=== PATIENT | female | born 1940 | race Caucasian/White ===

== ENCOUNTER 2023-04-01 13:09 | Inpatient (IN) | payer OTHER, BC ==
[~2023-04-01] VITALS: Ht 157.5 cm; Wt 54.9 kg
--- NOTE | 2023-04-01 13:12 | NUR ---
BIBA BLS TO ER BED 6
[2023-04-01 13:19] VITALS: BP 143/61
--- NOTE | 2023-04-01 13:38 | NUR ---
alert with confusion, , placed on monitor, pulse ox, and quantitative analyst, vss, iv 20g established to left ac with blood return, labs drawn, tolerated well, no infilitration, no redness noted at this time, hob 30 degress, positioned for comfort, awaiting for ermd
[2023-04-01 13:52] LABS: BASOPHILS % (AUTO) 0.3 % (0.0-2.0); EOSINOPHILS % (AUTO) 0.3 % (0.0-4.0); HEMATOCRIT 32.7 % (36-48); HEMOGLOBIN 10.4 g/dL (12.0-16.0); LYMPHOCYTES # (AUTO) 0.7 K/uL (2.5-16.5); LYMPHOCYTES % (AUTO) 7.2 % (20.5-51.1); MEAN CORPUSCULAR HEMOGLOBIN 24 pg (27-31); MEAN CORPUSCULAR HGB CONC 32 g/dL (33-37); MEAN CORPUSCULAR VOLUME 76.2 fL (80-94); MONOCYTES # (AUTO) 0.8 K/uL (0.8-1.0); MONOCYTES % (AUTO) 8.7 % (1.7-9.3); NEUTROPHILS # (AUTO) 8.1 K/uL (1.8-7.7); NEUTROPHILS % (AUTO) 83.5 % (42.2-75.2); PLATELET COUNT (AUTO) 235 K/uL (140-450); RED BLOOD CELL COUNT(AUTO) 4.29 MIL/uL (4.20-5.40); RED CELL DISTRIBUTION WIDTH 20.8 % (11.6-13.7); WHITE BLOOD COUNT (AUTO) 9.7 K/uL (4.8-10.8)
[2023-04-01] MEDS ORDERED: MORPHINE SULFATE 4 MG/ML SYR IVP ONE (14:20)
[2023-04-01] MEDS ORDERED: ONDANSETRON 4 MG/2 ML VIAL IVP ONE (14:20)
[2023-04-01] MEDS ORDERED: NACL 0.9% 1,000 ML IV ONE ×2 (14:20→16:00)
[2023-04-01 14:27] LABS: ALBUMIN 2.6 g/dL (3.4-5.0); ANION GAP 11.9 (8-16); ASPARTATE AMINOTRANSFERASE 25 U/L (15-37); CARBON DIOXIDE 30.7 mmol/L (21-32); CHLORIDE 97 mmol/L (98-107); CREATININE 2.5 mg/dL (0.6-1.3); GLUCOSE 154 mg/dL (74-106); LIPASE 81 U/L (73-393); POTASSIUM 3.6 mmol/L (3.5-5.1); SODIUM SERUM 136 mmol/L (136-145); TOTAL BILIRUBIN 0.6 mg/dL (0.0-1.0); UREA NITROGEN, BLOOD 42 mg/dL (7-18)
[2023-04-01 15:50] LABS: APPEARANCE,URINE CLEAR (CLEAR); BILIRUBIN,URINE 2+ (NEGATIVE); BLOOD, URINE 3+ (NEGATIVE); COLOR,URINE YELLOW (YELLOW); LEUKOCYTE ESTERASE ,URINE 2+ (NEGATIVE); NITRITE, URINE POSITIVE (NEGATIVE); PH,URINE 6.5 (5.0-9.0); UGLUCOSE NEGATIVE (NEGATIVE)
--- NOTE | 2023-04-01 15:50 | NUR ---
JACKIE HUYNH OF PATIENT (PHONE NUMBER [phone]) CALLED FOR UPDATE ON PATIENTS STATUS. INFORMED PATIENT IS PENDING ADMIT. JACKIE HAS POWER OF BRUISE TRIMMER FOR PATIENT. SHE REQUESED THAT BONNIE SONG PHONE NUMBER [phone] BE ADDED TO CONTACT LIST FOR UPDATES REGARDING CARE FOR PATIENT.
[2023-04-01] MEDS ORDERED: POTASSIUM CHLORIDE 10 MEQ TABER PO PRN (15:55)
[2023-04-01] MEDS ORDERED: ACETAMINOPHEN 325 MG TAB PO PRN (15:55)
[2023-04-01] MEDS ORDERED: LORazepam 2 MG/ML VIAL IVP PRN (15:55)
[2023-04-01] MEDS ORDERED: MORPHINE SULFATE 2 MG/ML SYR IVP PRN (15:55)
[2023-04-01] MEDS ORDERED: DOCUSATE SODIUM 100 MG GELCAP PO PRN (15:55)
[2023-04-01] MEDS ORDERED: ONDANSETRON 4 MG/2 ML VIAL IVP PRN (15:55)
[2023-04-01] MEDS ORDERED: ZOLPIDEM 10 MG TAB PO PRN (15:55)
[2023-04-01 16:02] LABS: RBC,URINE TOO NUMEROUS TO COUN /HPF (0-5)
[2023-04-01 16:03] LABS: TRICHOMONAS,URINE None Seen /HPF (None Seen); YEAST,URINE None Seen /HPF (None Seen)
--- NOTE | 2023-04-01 16:45 | NUR ---
Janet haynes in EDM - 04/01/23 at 1651 by [email or web address] LONG [facility] CALLED FOR PATIENT UPDATE. WILL CALL BACK TO SPEAK TO MD EDUARDO.
--- NOTE | 2023-04-01 17:00 | NUR ---
Patient will be admitted to care of DR PYLE. Admited to TELEMETRY. Will go to room 107B. Belongings list completed. Report to ROBERT CHERRY.
--- NOTE | 2023-04-01 17:15 | NUR ---
RECEIVED PATIENT ED ON BED. PATIENT AWAKE. ONLY RESPONDS IN NODS. VITAL SIGNS CHECKED. PATIENT ABLE TO TOLERATE ROOM AIR. ADMISSION CHARTING AND PLAN OF CARE DONE.
[2023-04-01] MEDS: NACL 0.45% 1,000 ML IV SCH ×2 (17:25→23:24)
[2023-04-01 18:10] LABS: BASOPHILS # (AUTO) 0.1 K/uL (0.00-0.22); BASOPHILS % (AUTO) 0.8 % (0.0-2.0); EOSINOPHILS % (AUTO) 0.4 % (0.0-4.0); HEMOGLOBIN 9.6 g/dL (12.0-16.0); LYMPHOCYTES % (AUTO) 10.1 % (20.5-51.1); MEAN CORPUSCULAR HEMOGLOBIN 24 pg (27-31); MEAN CORPUSCULAR HGB CONC 32 g/dL (33-37); MEAN CORPUSCULAR VOLUME 75.9 fL (80-94); MONOCYTES # (AUTO) 0.9 K/uL (0.8-1.0); MONOCYTES % (AUTO) 9.3 % (1.7-9.3); NEUTROPHILS # (AUTO) 7.8 K/uL (1.8-7.7); NEUTROPHILS % (AUTO) 79.4 % (42.2-75.2); PLATELET COUNT (AUTO) 246 K/uL (140-450); RED BLOOD CELL COUNT(AUTO) 3.96 MIL/uL (4.20-5.40); WHITE BLOOD COUNT (AUTO) 9.8 K/uL (4.8-10.8)
--- NOTE | 2023-04-01 19:20 | NUR ---
ENDORSED PATIENT TO PM NURSE FOR CONTINUATION OF CARE.
[2023-04-01 20:00] VITALS: BP 143/56
--- NOTE | 2023-04-01 20:00 | NUR ---
HAND-OFF REPORT FROM FRANK CAREY FOR CONTINUITY OF CARE. PT RESTING QUIETLY. NO ACUTE DISTRESS. CONT TO MONITOR AND ASSIST.
--- NOTE | 2023-04-01 22:51 | NUR ---
2229 REFUSED ULTRASOUND OF KIDNEYS. RN NOTIFIED BY RADIOLOGY. RN ACCOMPANIED RADIOLOGY TO EXPLAIN IMPORTANCE. PT ADAMANTLY REFUSED,"I DON'T WANT IT". US OF KIDNEYS NOT DONE. RADIOLOGY STATED WILL ATTEMPT AGAIN IN A.M. CHARGE NURSE AWARE.
--- NOTE | 2023-04-01 23:00 | NUR ---
MRSA SWAB OBTAINED. CONTINUES TO REFUSE HOFFMAN CATHETER. PERSONNEL X2 ATTEMPTED WHEN PRIMARY NURSE WAS TOLD BY PT "I JUST DON'T LIKE YOU". OTHER STAFF UNSUCCESSFUL WELL.
[2023-04-01] MEDS ORDERED: cefTRIAXone 1,000 MG VIAL ONE (23:31)
--- NOTE | 2023-04-01 23:40 | NUR ---
ROCEPHIN1 GRAM FIRST DOSE ADMINISTERED AT THIS TIME VERIFIED OK WITH CHARGE NURSE DONELL. PT JUST NOW ALLOWING IV FLUIDS TO BE HUNG. TOTALLY NON-COMPLIANT WITH NURSING CARE AND MD ORDERS.
[2023-04-02] VITALS: BP 108/54
--- NOTE | 2023-04-02 03:16 | NUR ---
0155 MD PYLE NOTIFIED PT REFUSED ULTRASOUND OF KIDNEYS/HOFFMAN PLACEMENT AND DELAYED IV THERAPY TILL 04/01/23 4465. INFORMED TO DOCUMENT AND SHE WILL TALK WITH PATIENT IN A.M. CHARGE NURSE NOTIFIED OF MD RESPONSE.
[2023-04-02 04:00] VITALS: BP 145/53
[2023-04-02 06:34] LABS: ALBUMIN 2.1 g/dL (3.4-5.0); ANION GAP 10.2 (8-16); ASPARTATE AMINOTRANSFERASE 21 U/L (15-37); CARBON DIOXIDE 29.5 mmol/L (21-32); CHLORIDE 100 mmol/L (98-107); CREATININE 2.2 mg/dL (0.6-1.3); GLUCOSE 94 mg/dL (74-106); MAGNESIUM 1.8 mg/dL (1.8-2.4); PHOSPHORUS 4.5 mg/dL (2.5-4.9); POTASSIUM 3.7 mmol/L (3.5-5.1); SODIUM SERUM 136 mmol/L (136-145); TOTAL BILIRUBIN 0.4 mg/dL (0.0-1.0); UREA NITROGEN, BLOOD 39 mg/dL (7-18)
[2023-04-02 06:50] LABS: BASOPHILS % (AUTO) 0.4 % (0.0-2.0); EOSINOPHILS # (AUTO) 0.1 K/uL (0-0.4); EOSINOPHILS % (AUTO) 1.4 % (0.0-4.0); HEMATOCRIT 27.6 % (36-48); HEMOGLOBIN 8.8 g/dL (12.0-16.0); LYMPHOCYTES % (AUTO) 11.7 % (20.5-51.1); MEAN CORPUSCULAR HEMOGLOBIN 24 pg (27-31); MEAN CORPUSCULAR HGB CONC 32 g/dL (33-37); MEAN CORPUSCULAR VOLUME 76.3 fL (80-94); MONOCYTES % (AUTO) 11.5 % (1.7-9.3); NEUTROPHILS # (AUTO) 6.3 K/uL (1.8-7.7); PLATELET COUNT (AUTO) 216 K/uL (140-450); RED BLOOD CELL COUNT(AUTO) 3.62 MIL/uL (4.20-5.40); WHITE BLOOD COUNT (AUTO) 8.5 K/uL (4.8-10.8)
--- NOTE | 2023-04-02 07:17 | NUR ---
PATIENT HAS BEEN SCREENED AND CATEGORIZED MODERATE NUTRITION RISK. PATIENT WILL BE SEEN WITHIN 3-5 DAYS OF ADMISSION. 04/01/23-04/06/[address]
--- NOTE | 2023-04-02 07:30 | NUR ---
RECEIVED REPORT FROM SKIDDER LEVER OPERATOR NURSE FOR CONTINUITY OF CARE. PT IS AWAKE AND VS IS BEING TAKEN, NO SIGNS OF DISTRESS. WILL CONTINUE TO MONITOR.
[2023-04-02 08:00] VITALS: BP 131/53
[2023-04-02] MEDS: PANTOPRAZOLE 40 MG INJ VIAL IVP SCH (09:18)
[2023-04-02 09:40] LABS: URINE TOTAL PROTEIN 202.5 mg/dL (0-12)
[2023-04-02 12:00] VITALS: BP 137/56
[2023-04-02] MEDS: NACL 0.45% 1,000 ML IV SCH (13:25)
[2023-04-02 16:00] VITALS: BP 127/54
--- NOTE | 2023-04-02 17:45 | NUR ---
HOFFMAN CATHETER 16 FR WAS INSERTED WITH AN OUTPUT OF 400ML WITH DARK URINE.
--- NOTE | 2023-04-02 19:30 | NUR ---
HAND-OF REPORT RECEIVED FROM A.M NURSE FOR CONTINUITY OF CARE WIT BEDSIDE ROUNDS. REPORTED PT RECEPTIVE TO ALL CARE TODAY. MD AWARE. RENAL ULTRASOUND ACCEPTED.RESULTS HYDRO NEPHROSIS LEFT KIDNEY. CT OF ABD SITHOUT CONTRAST REVEALED CARDIOMEGALY. IV THERAPY CONTINUES WITH FLUIDS AND ABX FOR HYDRATION. I/S NS REDUCED FROM 100 TO 70 ML/H. CONT. TO MONITOR AND ASSIST.
--- NOTE | 2023-04-02 19:30 | NUR ---
ENDORSED PT TO NIGHT NURSE FOR CONTINUITY OF CARE. PT IS AWAKE AND STABLE. NO SIGN OF DISTRESS.MNURUM
[2023-04-02 20:00] VITALS: BP 129/67
[2023-04-03] VITALS: BP 111/42
--- NOTE | 2023-04-03 01:30 | NUR ---
PT REQUESTED SLEEPING PILL. GIVEN.
[2023-04-03] MEDS: NACL 0.45% 1,000 ML IV SCH ×2 (02:10→16:28)
[2023-04-03 04:00] VITALS: BP 123/45
[2023-04-03 06:31] LABS: BASOPHILS # (AUTO) 0.1 K/uL (0.00-0.22); BASOPHILS % (AUTO) 1.3 % (0.0-2.0); EOSINOPHILS # (AUTO) 0.1 K/uL (0-0.4); HEMOGLOBIN 8.9 g/dL (12.0-16.0); LYMPHOCYTES # (AUTO) 1.2 K/uL (2.5-16.5); LYMPHOCYTES % (AUTO) 20.5 % (20.5-51.1); MEAN CORPUSCULAR HEMOGLOBIN 24 pg (27-31); MEAN CORPUSCULAR HGB CONC 32 g/dL (33-37); MEAN CORPUSCULAR VOLUME 76.8 fL (80-94); MONOCYTES # (AUTO) 0.5 K/uL (0.8-1.0); MONOCYTES % (AUTO) 8.5 % (1.7-9.3); NEUTROPHILS # (AUTO) 3.9 K/uL (1.8-7.7); NEUTROPHILS % (AUTO) 67.7 % (42.2-75.2); PLATELET COUNT (AUTO) 232 K/uL (140-450); RED BLOOD CELL COUNT(AUTO) 3.64 MIL/uL (4.20-5.40); RED CELL DISTRIBUTION WIDTH 21.2 % (11.6-13.7); WHITE BLOOD COUNT (AUTO) 5.7 K/uL (4.8-10.8)
[2023-04-03 07:02] LABS: ANION GAP 7.5 (8-16); CARBON DIOXIDE 31.2 mmol/L (21-32); CHLORIDE 103 mmol/L (98-107); CREATININE 1.5 mg/dL (0.6-1.3); GLUCOSE 82 mg/dL (74-106); POTASSIUM 3.7 mmol/L (3.5-5.1); SODIUM SERUM 138 mmol/L (136-145); UREA NITROGEN, BLOOD 27 mg/dL (7-18)
--- NOTE | 2023-04-03 07:23 | NUR ---
RECEIVED REPORT FROM TORCH CUTTER NURSE FOR CONTINUITY OF CARE. PT IS SLEEPING IN NC 3L, AWAKEN BY NAME, NO SIGN OF DISTRESS. WILL CONTINUE TO MONITOR. MNURUM
--- NOTE | 2023-04-03 07:30 | NUR ---
HAND-OFF REPORT TO RETURNING NURSES FOR CONTINUITY OF CARE. UNEVENTFUL NOC. SLEEPING PILL EFFECTIVE. URINE CONTINUES TO DRAIN PINK TRANSLUCENT COLORED URINE. DENIES PAIN. SLEPT WELL. NO TOOL SPECIMEN OBTAINED YET FOR OB/CDIFF. RELINQUISHED CARE OF PT AT THIS TIME.
[2023-04-03 08:00] VITALS: BP 123/46
[2023-04-03] MEDS: PANTOPRAZOLE 40 MG INJ VIAL IVP SCH (09:14)
[2023-04-03] MEDS: MAG SULF 2000 MG/WATER PREMIX 50 ML IV PRN (09:17)
--- NOTE | 2023-04-03 11:36 | NUR ---
DC PLANN[age] YRS OLD FEMALE PATIENT WAS ADMITTED FROM [facility] WITH A DX OF NAVID. PATIENT HAS A HX OF DEMENTIA HTN, AND A-FIB ON ELIQUIS. CXR SHOWED MILD CARDIOMEGALY AND PULMONARY EDEMA WITH A SMALL PLEURAL EFFUSION. RAPID COVID TEST NEGATIVE. ADMINISTERED IVF, IV ABX ROCEPHIN AND CONTINUED HOME MEDS. CONSULTED WITH GI , UROLOGIST AND NEPHRO. DR ALBA WILL PERFORM EGD AND COLONOSCOPY. DC PLAN TO RETURN TO [facility] WHEN STABLE. CM TO FOLLOW Addendum: 04/04/23 at 1109 by Abbey Aj RN DC PLANNING: SEEN BY GI, CONTINUE CONSERVATIVE TREATMENT MONITOR GI BLEED CONSIDER EGD/COLONOSCOPY NEEDED BY THE CLINICAL COURSE. UROLOGIST - KEEP F/C AND REPEAT RENAL US TO ASSESS RESOLUTION OF HYDRONEPHROSIS RECOMMENDED OUTPT UROLOGY F/U AND NEPHRO DR ODOM CLEARED FROM RENAL STAND POINT. DC PLAN TO GO HOME AND F/U WITH UROLOGIST RECOMMENDED. CM TO FOLLOW Addendum: 04/05/23 at 1433 by ABA ROSS CM RECEIVED ORDER FOR PATIENT TO GO BACK TO SNF FOR CONTINUE OF CARE. FAXED ALL PAPERWORK TO [facility] LOCATED AT [address] [facility] CALL FOR REPORT NUMBER . PATIENT WILL BE GOING TO ROOM [address] MICHEL. TRANSPORTATION ARRANGED WITH [employer] [facility] FOR A [id number] ROUTE CDL DRIVER TIME. NURSE RAMOS AND DAILY MEJIA AWARE OF THE ABOVE INFORMATION.
[2023-04-03 12:00] VITALS: BP 120/47
--- NOTE | 2023-04-03 12:39 | NUR ---
DC PLANNING ASSESSMENT COMPLETE PLEASE REFER TO ASSESSMENT FOR ADDITIONAL DETAILS MAN[facility] SUÁREZ REPORTS DC PLAN IS FOR PT TO RETURN TO [facility] WHEN MEDICALLY CLEARED BY PHYSICIAN. Addendum: 04/03/23 at 1240 by Ab Ferrera SS Amended: Links added.
[2023-04-03] MEDS ORDERED: MELATONIN 3 MG TAB PO PRN (13:00)
[2023-04-03 16:00] VITALS: BP 115/38
--- NOTE | 2023-04-03 19:27 | NUR ---
ENDORSED PT TO PULP DRIER NURSE FOR CONTINUITY OF CARE.PT IS AWAKE AND STABLE, NO SIGNS OF DISTRESS. IV INFUSING ORDERED. CALL BUTTON WITHIN REACH. MNURUM
[2023-04-03 20:00] VITALS: BP 101/31
[2023-04-04] VITALS: BP 101/39
[2023-04-04 04:00] VITALS: BP 113/66
[2023-04-04 06:28] LABS: CARBON DIOXIDE 30.9 mmol/L (21-32); CHLORIDE 102 mmol/L (98-107); GLUCOSE 89 mg/dL (74-106); POTASSIUM 3.9 mmol/L (3.5-5.1); SODIUM SERUM 138 mmol/L (136-145); UREA NITROGEN, BLOOD 17 mg/dL (7-18)
[2023-04-04 06:33] LABS: BASOPHILS # (AUTO) 0.1 K/uL (0.00-0.22); BASOPHILS % (AUTO) 1.3 % (0.0-2.0); EOSINOPHILS # (AUTO) 0.1 K/uL (0-0.4); EOSINOPHILS % (AUTO) 1.9 % (0.0-4.0); HEMOGLOBIN 8.1 g/dL (12.0-16.0); LYMPHOCYTES # (AUTO) 1.1 K/uL (2.5-16.5); LYMPHOCYTES % (AUTO) 22.6 % (20.5-51.1); MEAN CORPUSCULAR HEMOGLOBIN 25 pg (27-31); MEAN CORPUSCULAR HGB CONC 32 g/dL (33-37); MEAN CORPUSCULAR VOLUME 75.7 fL (80-94); MONOCYTES # (AUTO) 0.5 K/uL (0.8-1.0); MONOCYTES % (AUTO) 10.7 % (1.7-9.3); NEUTROPHILS # (AUTO) 3.1 K/uL (1.8-7.7); NEUTROPHILS % (AUTO) 63.5 % (42.2-75.2); PLATELET COUNT (AUTO) 234 K/uL (140-450); RED BLOOD CELL COUNT(AUTO) 3.31 MIL/uL (4.20-5.40); WHITE BLOOD COUNT (AUTO) 4.9 K/uL (4.8-10.8)
[2023-04-04] MEDS: NACL 0.45% 1,000 ML IV SCH ×2 (06:46→21:04)
--- NOTE | 2023-04-04 07:00 | NUR ---
RECEIVED BEDSIDE REPORT FROM NIGHTSHIFT NURSE. PT IS ASLEEP IN BED, WOKE TO NAME AND TOUCH, AOX3 (ORIENTED TO NAME, BIRTHDAY, PLACE - NOT YEAR, STATES ITS 1952). PT REPORTS NO PAIN/DISCOMFORT. PT IS CHRISTIE, LOW 40'S WHEN ASLEEP, HIGH 40'S WHEN AWAKE. WILL NOTIFY MD. REORIENTED PT TO CALL LIGHT, WILL CONTINUE WITH CARE.
[2023-04-04 08:00] VITALS: BP 107/33
[2023-04-04] MEDS: PANTOPRAZOLE 40 MG INJ VIAL IVP SCH (09:24)
[2023-04-04 12:00] VITALS: BP 110/42
--- NOTE | 2023-04-04 13:00 | NUR ---
PT FAMILY AND FRIEND AT BEDSIDE. PT SHOWING NO SIGNS OF DISTRESS, NO REPORTS OF PAIN OR DISCOMFORT. WILL CONTINUE WITH PT CARE.
[2023-04-04 16:00] VITALS: BP 122/71
[2023-04-04] MEDS: MAG SULF 2000 MG/WATER PREMIX 50 ML IV PRN (18:49)
--- NOTE | 2023-04-04 19:00 | NUR ---
PT IS RESTING IN BED, NO SIGNS OF DISTRESS, NO REPORTS OF PAIN. WAITED TO ADMINISTER MAG-RIDER DUE TO CONCERN WITH PT'S HR. PT IS BRADYCARDIC, HR: 40'S. WAS INSTRUCTED BY CHARGE NURSE AND PHARMACY TO INFORM MD. ATTENDING MD AND CARDIAC MD NOTIFIED. CARDIAC MD CAME AND STATES IT IS OKAY TO ADMINISTER, MAG-RIDER NOW INFUSING AT 25MLS/HR. PT TOLERATING CARE TAKER WELL. ENDORSED TO NIGHTSHIFT NURSE.
--- NOTE | 2023-04-04 19:40 | NUR ---
RECEIVED REPORT FROM DAY SHIFT NURSE FOR CONTINUITY OF CARE. PT IS AWAKE AT THIS TIME, ALERT AND ORIENTED X3. CURRENTLY ON 2L NC WITH NO APPARENT SIGNS OF ACUTE DISTRESS NOTED. HOFFMAN CATHETER IN PLACE. OVERALL SKIN IS INTACT. IV SITE LOCATED TO LEFT AC, 20 GAUGE, INTACT AND PATENT. WILL PLAN TO ADMINISTER SCHEDULED ROCEPHIN ANTIBIOTIC ONCE MAG RIDER HAS FINISHED INFUSING. CALL LIGHT WITHIN REACH, SAFETY PRECAUTIONS IN PLACE. WILL MAKE FREQUENT ROUNDS
--- NOTE | 2023-04-04 19:41 | NUR ---
Patient's Plan of Care was discussed and reviewed with ANDER: FRANK
[2023-04-04 20:00] VITALS: BP 129/49
--- NOTE | 2023-04-04 22:55 | NUR ---
PT RESTING QUIETLY, NO DISTRESS NOTED, IV INFUSING WELL. WILL CONTINUE TO MONITOR THE PT.
[2023-04-05] VITALS: BP 120/59
[2023-04-05 04:00] VITALS: BP 124/47
--- NOTE | 2023-04-05 05:04 | NUR ---
PT SLEEPING AT THIS TIME. HEART RATE 55. 1150 DRAINED FROM HOFFMAN CATHETER, URINE COLOR IS CLEAR/YELLOW, AND NORMAL ODOR IS PRESENT. PATIENT HAS HAD NO BM THIS SHIFT. WILL CONTINUE MONITORING THE PT.
--- NOTE | 2023-04-05 06:57 | NUR ---
PT SLEPT WELL THROUGHOUT THE NIGHT. IV STILL INFUSING WELL, NO PAIN STATED AT THIS TIME, NO S/SX OF ACUTE RESPIRATORY DISTRESS NOTED. ENDORSED TO DAY SHIFT NURSE FOR CONTINUITY OF CARE, IN STABLE CONDITION.
--- NOTE | 2023-04-05 07:00 | NUR ---
PT IS ASLEEP IN BED, WOKE TO NAME AND TOUCH. NO SIGNS OF DISTRESS, NO REPORTS OF PAIN. WILL CONTINUE WITH PT CARE.
[2023-04-05 07:04] LABS: BASOPHILS # (AUTO) 0.1 K/uL (0.00-0.22); EOSINOPHILS # (AUTO) 0.1 K/uL (0-0.4); EOSINOPHILS % (AUTO) 2.6 % (0.0-4.0); HEMATOCRIT 26.6 % (36-48); HEMOGLOBIN 8.5 g/dL (12.0-16.0); LYMPHOCYTES % (AUTO) 18.7 % (20.5-51.1); MEAN CORPUSCULAR HEMOGLOBIN 24 pg (27-31); MEAN CORPUSCULAR HGB CONC 32 g/dL (33-37); MEAN CORPUSCULAR VOLUME 76.8 fL (80-94); MONOCYTES # (AUTO) 0.5 K/uL (0.8-1.0); MONOCYTES % (AUTO) 9.7 % (1.7-9.3); NEUTROPHILS # (AUTO) 3.7 K/uL (1.8-7.7); PLATELET COUNT (AUTO) 246 K/uL (140-450); RED BLOOD CELL COUNT(AUTO) 3.47 MIL/uL (4.20-5.40); RED CELL DISTRIBUTION WIDTH 21.2 % (11.6-13.7); WHITE BLOOD COUNT (AUTO) 5.5 K/uL (4.8-10.8)
[2023-04-05 07:13] LABS: ANION GAP 8.3 (8-16); CARBON DIOXIDE 30.6 mmol/L (21-32); CHLORIDE 104 mmol/L (98-107); CREATININE 0.8 mg/dL (0.6-1.3); GLUCOSE 86 mg/dL (74-106); POTASSIUM 3.9 mmol/L (3.5-5.1); SODIUM SERUM 139 mmol/L (136-145); UREA NITROGEN, BLOOD 9 mg/dL (7-18)
[2023-04-05 08:00] VITALS: BP 125/48
[2023-04-05] MEDS: PANTOPRAZOLE 40 MG INJ VIAL IVP SCH (09:02)
[2023-04-05] MEDS: NACL 0.45% 1,000 ML IV SCH (11:50)
[2023-04-05 12:00] VITALS: BP 122/54
--- NOTE | 2023-04-05 13:00 | NUR ---
PT INFORMED OF DISCHARGE. [facility] AND [facility] ORDERED FOR PT BEFORE DISCHARGE. PT REFUSED [facility], [facility] ADMINISTERED. PT VERBALIZED UNDERSTANDING OF DISCHARGE INSTRUCTIONS. FAMILY NOTIFIED. PT WILL BE TRANSFERRED BACK TO [facility]. HOFFMAN WILL BE REMOVED BEFORE DISCHARGE. CASE MANAGEMENT REPORTS PT WILL BE PICKED UP BY [facility] , PICKUP TIME IS 4PM TO 5PM. NO FURTHER NEEDS ARE TO BE MET AT THIS TIME, WILL CONTINUE WITH PT CARE.
[2023-04-05 14:54] VITALS: BP 122/56
--- NOTE | 2023-04-05 16:00 | NUR ---
CALLED PT TRANSPORT ([facility] - ). CONFIRMED, PT WILL BE PICKED UP AT 5PM.
--- NOTE | 2023-04-05 17:30 | NUR ---
PT DISCHARGED 1730. LEFT TELE UNIT VIA GURNEY. TELE REMOVED, IV REMOVED, HOFFMAN DC'D PER TRANSFER FACILITY'S REQUEST. PT SHOWS NO SIGNS OF DISTRESS, NO REPORTS OF PAIN.
== END 2023-04-05 17:30 | DRG 682 ==
LOC: MED 13:09 → MMU 15:48 → MTU 16:42
PROVIDERS: ADMIT Family Medicine; ATTEND Family Medicine
PROC: 0T9B70Z Drainage of Bladder with Drainage Device, Via Natural or Artificial Opening (ICD-10-PCS; principal; 2023-04-01)
DX: N17.0 Acute kidney failure with tubular necrosis (principal); E43 Unspecified severe protein-calorie malnutrition; I48.20 Chronic atrial fibrillation, unspecified; I13.0 Hypertensive heart and chronic kidney disease with heart failure and stage 1 through stage 4 chronic kidney disease, or unspecified chronic kidney disease; N39.0 Urinary tract infection, site not specified; N13.30 Unspecified hydronephrosis; N13.9 Obstructive and reflux uropathy, unspecified; Z20.822 Contact with and (suspected) exposure to COVID-19; D50.9 Iron deficiency anemia, unspecified; Z68.22 Body mass index [BMI] 22.0-22.9, adult; F03.90 Unspecified dementia, unspecified severity, without behavioral disturbance, psychotic disturbance, mood disturbance, and anxiety; R31.9 Hematuria, unspecified; N18.9 Chronic kidney disease, unspecified; R80.9 Proteinuria, unspecified; R33.9 Retention of urine, unspecified; I50.9 Heart failure, unspecified; Z79.01 Long term (current) use of anticoagulants; Z87.440 Personal history of urinary (tract) infections; Z88.2 Allergy status to sulfonamides
CPT/HCPCS: 36415; 71045; 76770; 80048; 80053; 81001; 82570; 82728; 83540; 83690; 83735; 84100; 85025; 86886; 86900; 86901; 86920; 87040; 87081; 87086; 96361; 96374; 96375; 97163-GP; 97530; 99291; 99292; C9113; J0696; J2270; J2405; J3475; J7060; Q0092